=== PATIENT | female | born 1980 | race Caucasian/White ===

== ENCOUNTER 2016-11-22 16:40 | Emergency (ER) | payer MEDICAID ==
[~2016-11-22] VITALS: Ht 162.6 cm; Wt 64.5 kg
[~2016-11-22 16:40] MED LIST: PREN1TAB49 PO
[2016-11-22 16:47] VITALS: Ht 162.6 cm; Wt 64.5 kg
[2016-11-22] MEDS ORDERED: LABETALOL HCL 20MG INJ IV PRN (17:00)
--- NOTE | 2016-11-22 17:06 | ERA ---
ER Documentation Chief Complaint Date/Time DATE: 11/22/16 TIME: 17:01 Chief Complaint LEFT SIDE NUMBNESS AND HEADACHE SINCE AM HPI Patient is a 36-year-old female with a known history of hypertension he is not currently taking any medications. She reports a headache for the last 2 days and then developed left-sided facial numbness as well as left upper extremity numbness earlier today that is continuing now. She also had chest pain earlier today which has now resolved. No shortness of breath, head trauma, visual changes, fever, coughing, congestion, rhinorrhea, sore throat, or otalgia. She reports some weakness of the left upper extremity as well. Nothing seems to make this better or worse. Denies any abdominal pain, nausea, vomiting, diarrhea, dysuria, or hematuria. She states that she is not . She reports that she had slurred speech earlier. The remainder of the systems are negative. ROS All systems reviewed and are negative except as per history of present illness. Medications Home Meds Discontinued Reported Medications Vits W-Ca,Fe,Fa(<1MG) () 1 Tab Tablet, 1 PO 07/07/11 Allergies Allergies: Coded Allergies: No Known Allergy (Verified , 11/22/16) Physical Exam Vitals Vital Signs Date Time Temp Pulse Resp B/P Pulse Ox O2 Delivery O2 Flow Rate FiO2 11/22/16 16:47 98.5 79 20 189/100 100 Physical Exam Const: [] Well-developed well-nourished female sitting on the bed in no acute distress Head: Atraumatic normocephalic Eyes: Normal Conjunctiva, pupils equally round reactive to light, extraocular motions are intact, no facial asymmetry noted, no slurring of speech noted ENT: Normal External Ears, Nose and Mouth. Neck: Full range of motion..~ No meningismus. Resp: Clear to auscultation bilaterally Cardio: Regular rate and rhythm, no murmurs Abd: Soft, non tender, non distended. Normal bowel sounds Skin: No petechiae or rashes Back: No midline or flank tenderness Ext: No cyanosis, or edema Neur: Awake and alert, oriented 3, GCS of 15, moves all extremities equally , initially the patient seemed to have decreased [employer] in her left hand however is seen to involve only her left middle, fourth, and fifth digit. When she was doing her finger to nose on her left hand she was noted to be able to completely close her left hand whereas when she was doing her [employer] it seemed as if she could not completely close her hand. Patient has normal gait and a normal tandem gait. Cranial nerves II through XII are intact and finger to nose is intact bilaterally. Psych: Normal Mood and Affect Result Diagram: 11/22/16 1705 11/22/16 1705 Results 24 hrs Laboratory Tests Test 11/22/16 17:05 11/22/16 17:19 White Blood Count 8.410^3/ul Red Blood Count 4.1110^6/ul Hemoglobin 12.7g/dl Hematocrit 39.6% Mean Corpuscular Volume 96.4fl Mean Corpuscular Hemoglobin 30.9pg Mean Corpuscular Hemoglobin Concent 32.1g/dl Red Cell Distribution Width 12.2% Platelet Count 87983^3/UL Mean Platelet Volume 11.3fl Neutrophils % 56.1% Lymphocytes % 35.1% Monocytes % 6.9% Eosinophils % 1.4% Basophils % 0.4% Nucleated Red Blood Cells % 0.0/100WBC Neutrophils # 4.710^3/ul Lymphocytes # 2.910^3/ul Monocytes # 0.610^3/ul Eosinophils # 0.110^3/ul Basophils # 0.010^3/ul Nucleated Red Blood Cells # 0.010^3/ul Prothrombin Time 12.9Sec Prothrombin Time Ratio 1.0 INR International Normalized Ratio 0.97 Activated Partial Thromboplast Time 33.7Sec Sodium Level 137mmol/L Potassium Level 3.8mmol/L Chloride Level 101mmol/L Carbon Dioxide Level 26mmol/L Anion Gap 14 Blood Urea Nitrogen 9mg/dl Creatinine 0.56mg/dl Glucose Level 110mg/dl Calcium Level 9.5mg/dl Total Bilirubin 0.1mg/dl Direct Bilirubin 0.00mg/dl Indirect Bilirubin 0.1mg/dl Aspartate Amino Transf (AST/SGOT) 19IU/L Alanine Aminotransferase (ALT/SGPT) 30IU/L Alkaline Phosphatase 53IU/L Troponin I < 0.012ng/ml Total Protein 8.1g/dl Albumin 4.6g/dl Globulin 3.50g/dl Albumin/Globulin Ratio 1.31 Urine Color LT. YELLOW Urine Clarity CLEAR Urine pH 6.0 Urine Specific Early <=1.005 Urine Ketones NEGATIVE Urine Nitrite NEGATIVE Urine Bilirubin NEGATIVE Urine Urobilinogen 0.2 E.U./dL Urine Leukocyte Esterase NEGATIVE Urine Microscopic RBC 0-2/HPF Urine Microscopic WBC 0-2/HPF Urine Squamous Epithelial Cells FEW Urine Hemoglobin 1+ Urine Glucose NEGATIVE% Urine Total Protein NEGATIVE Hemoglobin A1c 5.3% Serum HCG, Qualitative NEGATIVE Urine Opiates Screen NEGATIVE Urine Barbiturates NEGATIVE Urine Amphetamines Screen NEGATIVE Urine Benzodiazepines Screen NEGATIVE Urine Cocaine Screen NEGATIVE Urine Cannabinoids NEGATIVE Current Medications Medications (Trade) Dose Ordered Sig/Anjel Route PRN Reason Start Time Stop Time Status Last Admin Dose Admin Labetalol HCl (Labetalol) 20 mg Q20M PRN IV ELEVATED BLOOD PRESSURE 11/22/16 17:00 Acetaminophen/ Hydrocodone Bitart ([place] (5/325)) 2 tab ONCE ONCE PO 11/22/16 18:30 11/22/16 18:31 DC Ondansetron HCl (Zofran Odt) 4 mg ONCE STAT ODT 11/22/16 18:26 11/22/16 18:27 DC Procedures/MDM Differential includes but is not limited to uncontrolled hypertension, hypertensive headache, TIA, CVA, paresthesias, unexplained weakness, anxiety EKG: Rate/Rhythm: Normal Sinus Rhythm at 75 bpm without any evidence of acute ischemia, arrhythmia, or ectopy noted, no old EKG available for comparison QRS, ST, T-waves: No changes consistent w/ acute ischemia Impression: No evidence of ischemia or arrhythmia Chest x-ray not reveal any acute cardiopulmonary process CT of the head did not reveal any acute intracranial process I spoke with the neurologist who agreed that the patient's symptoms were not consistent with a stroke. However given her hypertension she did have some significant risk factor there. His recommendation was to get an MRI of her brain and if it was normal to treat her hypertension and have her follow-up with her primary care physician as an outpatient. An MRI of her brain has been ordered and is pending at this time. 1814: Patient states her symptoms are improved. Her blood pressure is improved. Her exam is unchanged. 2027: Patient is in MRI at this time. Departure Diagnosis: Primary Impression: Hypertension Qualified Code: I10 - Essential hypertension Additional Impressions: Headache Qualified Code: G44.59 - Other complicated headache syndrome Paresthesia of arm Facial paresthesia Condition: Good Patient Instructions: High Blood Pressure (Hypertension), Numbness, Self-Care for Headaches Additional Instructions: Please take the medications as prescribed and schedule a follow-up appointment with your primary care physician to have your blood pressure rechecked next week. Return to the emergency department for any new or worsening symptoms. PETERSON GONZALES Nov 22, 2016 17:06
[2016-11-22 17:15] LABS: ADD SCAN DIFF NO
[2016-11-22 17:27] LABS: INR 0.97; PROTIME 12.9 Sec (12.2-14.2)
[2016-11-22 17:28] LABS: ALBUMIN 4.6 g/dl (3.3-4.9); CHLORIDE 101 mmol/L (97-110); PARTIAL THROMBOPLASTIN TIME 33.7 Sec (25.0-35.0)
[2016-11-22 17:29] LABS: POTASSIUM 3.8 mmol/L (3.5-5.1); SODIUM 137 mmol/L (135-144)
[2016-11-22 17:31] LABS: ALBUMIN/GLOBULIN RATIO 1.31; ALKALINE PHOSPHATASE 53 IU/L (42-121); ANION GAP 14 (8-16); ASPARTATE AMINO TRANSFERASE 19 IU/L (15-46); BILIRUBIN,INDIRECT 0.1 mg/dl (0-1.1); BILIRUBIN,TOTAL 0.1 mg/dl (0.2-1.3); BLOOD UREA NITROGEN 9 mg/dl (7-20); CARBON DIOXIDE 26 mmol/L (21-31); CREATININE 0.56 mg/dl (0.44-1.00); TOTAL PROTEIN 8.1 g/dl (6.1-8.1)
--- NOTE | 2016-11-22 17:31 | RADRPT ---
PROCEDURE: CT Brain without contrast. CLINICAL INDICATION: Possible stroke, left-sided numbness and headaches. TECHNIQUE: CT scan of the brain was performed on a multidetector high-resolution CT scan. Axial im aging was obtained of the brain without contrast administration. Coronal and sagittal reformatted i mages were obtained from the axial source images. Standard CT scan of the head without contrast prot ocols were performed. The total exam CTDI equals 45.01 mGy and the total exam DLP equals 720.23 mGy-cm. One or more of the following dose reduction techniques were used: - Automated exposure control. - Adjustment of the mA and/or kV according to patient size. Use of iterative reconstruction technique. COMPARISON: None FINDINGS: The ventricular system and peripheral CSF spaces are unremarkable. Negative for intracranial masses hemorrhages or midline shift. The bones and calvarium are intact. The right frontal sinus is hypo plastic. Remainder of the paranasal sinuses that are visualized are unremarkable. The mastoids are unremarkable. IMPRESSION: No evidence of intracranial masses hemorrhages or midline shift. RPTAT:AAJJ Physician Moris Date Time Electronically viewed and signed by Physician Moris on 11/22/2016 17:30 /
[2016-11-22 17:32] LABS: ALANINE AMINOTRANSFERASE 30 IU/L (13-69); CALCIUM 9.5 mg/dl (8.4-10.2); GLUCOSE 110 mg/dl (70-220)
[2016-11-22 17:42] LABS: ADD UMIC YES; URINE BILIRUBIN (Dip) NEGATIVE (NEGATIVE); URINE BLOOD (Dip) 1+ (NEGATIVE); URINE COLOR LT. YELLOW (YELLOW); URINE GLUCOSE (Dip) NEGATIVE (NEGATIVE); URINE KETONES (Dip) NEGATIVE (NEGATIVE); URINE LEUKOCYTE ESTERASE (Dip) NEGATIVE (NEGATIVE); URINE NITRITE (Dip) NEGATIVE (NEGATIVE); URINE TOTAL PROTEIN (Dip) NEGATIVE (NEGATIVE); URINE UROBILINOGEN (Dip) 0.2 E.U./dL (0.1-1.0)
[2016-11-22 17:49] LABS: BASOPHILS % 0.4 % (0.0-2.0); EOSINOPHILS # 0.1 10^3/ul (0.0-0.5); EOSINOPHILS % 1.4 % (0.0-7.0); HEMATOCRIT 39.6 % (37.0-47.0); HEMOGLOBIN 12.7 g/dl (12.0-16.0); LYMPHOCYTES # 2.9 10^3/ul (0.8-2.9); LYMPHOCYTES % 35.1 % (15.0-51.0); MEAN CORPUSCULAR HEMOGLOBIN 30.9 pg (29.0-33.0); MEAN CORPUSCULAR HGB CONC 32.1 g/dl (32.0-37.0); MEAN CORPUSCULAR VOLUME 96.4 fl (82.0-101.0); MEAN PLATELET VOLUME 11.3 fl (7.4-10.4); MONOCYTE # 0.6 10^3/ul (0.3-0.9); MONOCYTES % 6.9 % (0.0-11.0); NEUTROPHIL # 4.7 10^3/ul (1.6-7.5); NEUTROPHILS % 56.1 % (39.0-77.0); PLATELET COUNT 262 10^3/UL (140-415); RED BLOOD COUNT 4.11 10^6/ul (4.20-5.40); RED CELL DISTRIBUTION WIDTH 12.2 % (11.5-14.5); WHITE BLOOD COUNT 8.4 10^3/ul (4.8-10.8)
[2016-11-22 17:52] LABS: TROPONIN-I < 0.012 ng/ml (0.00-0.12)
--- NOTE | 2016-11-22 17:55 | RADRPT ---
PROCEDURE: XR Chest 1 View. CLINICAL INDICATION: Abnormal breath sounds, possible stroke TECHNIQUE: AP view of the chest was obtained. COMPARISON: None. FINDINGS: The cardiomediastinal silhouette is within normal limits. No consolidations are identified. No pneu mothorax is seen. Osseous structures are intact. IMPRESSION: No visualized active disease. RPTAT: AA .Sergio Mayorga MD, Date Time Electronically viewed and signed by .Sergio Mayorga MD, on 11/22/2016 17:55 .P/
[2016-11-22 17:57] LABS: SQUAMOUS EPITHELIAL CELL,UR FEW; URINE RBCS 0-2 /HPF (0)
[2016-11-22 18:07] LABS: BARBITURATES NEGATIVE (NEGATIVE); BENZODIAZEPINES NEGATIVE (NEGATIVE); CANNABINOIDS NEGATIVE (NEGATIVE); COCAINE NEGATIVE (NEGATIVE); OPIATES NEGATIVE (NEGATIVE)
[2016-11-22] MEDS ORDERED: ONDANSETRON (ODT) 4 MG TAB ODT STA (18:26)
[2016-11-22] MEDS ORDERED: HYDROCODONE/APAP (5/325) TAB PO ONE (18:30)
[2016-11-22] MEDS ORDERED: LABE100T3 PO (20:32)
[2016-11-22] MEDS ORDERED: ONDA4TAB8 PO (20:33)
[2016-11-22] MEDS ORDERED: FIORICET PO (20:33)
[2016-11-22] MEDS ORDERED: hydrALAzine 20 MG INJ IV ONE (22:00)
[2016-11-22] MEDS ORDERED: ONDANSETRON 4 MG INJ ONE (22:10)
--- NOTE | 2016-11-22 22:22 | RADRPT ---
PROCEDURE: MRI Brain without contrast. CLINICAL INDICATION: Neurologic deficit. Possible stroke. TECHNIQUE: MRI of the brain was performed with the following sequences obtained: Sagittal, coronal and axial T1-weighted, axial T2-weighted, axial FLAIR, axial diffusion weighted (with ADC map), and coronal GRE. COMPARISON: CT brain 11/22/2016 FINDINGS: The diffusion sequence is normal with no evidence for acute infarct. No hemorrhage, mass effect or mass lesion is present. The extraaxial spaces are clear of collections. The ventricular system and sulci are normal. No signal alteration is present within the brainstem or cerebellum. The fourth ventricle is midline and the craniocervical junction lesion is intact. The area of the sella is normal. The bony calvarium and skull base are intact. The visualized paranasal sinuses and mastoid air cell s are clear. Physiologic flow voids within the internal carotid and vertebral arteries are maintain ed. RPTAT:HJJR IMPRESSION: Overall unremarkable noncontrast MRI of the brain. There are no findings to help explain the patient 's provided history. Physician Meir Date Time Electronically viewed and signed by Physician Meir on 11/22/2016 22:22 /
[2016-11-22] MEDS ORDERED: ONDANSETRON 4 MG INJ IV STA (22:35)
[2016-11-22 23:45] VITALS: BP 137/96; PULSE 98; RESP 20
== END 2016-11-22 23:51 | disposition home or self-care (01) ==
LOC: E/R 16:40
DX: I10 Essential (primary) hypertension (principal); R40.2252 Coma scale, best verbal response, oriented, at arrival to emergency department; G44.59 Other complicated headache syndrome; R20.2 Paresthesia of skin; R07.9 Chest pain, unspecified; R40.2142 Coma scale, eyes open, spontaneous, at arrival to emergency department; R40.2362 Coma scale, best motor response, obeys commands, at arrival to emergency department
CPT/HCPCS: 36415; 70450; 70551; 71010; 80053; 80307; 81001; 82962; 83036; 84484; 84703; 85025; 85610; 85730; 93005; 96374; 96375; J0360; J2405; Z7502; Z7610; 81003